=== PATIENT | female | born 1960 | race African-American/Black ===

== ENCOUNTER 2018-09-27 05:07 | Inpatient (IN) ==
[2018-09-27] MEDS ORDERED: MethylPREDNISolone Sod Succinate Inj 125 MG/2 ML Vial IV.PUSH ONE (05:16)
--- NOTE | 2018-09-27 05:21 | ED ---
HPI General Chief Complaint: Asthma Stated Complaint: resp Time Seen by Provider: 09/27/18 05:12 Source: patient Mode of arrival: ambulatory Limitations: other (poor historian) History of Present Illness HPI Narrative: 57 y/o female presents with awaking this morning with cough and congestion and shortness of breath. She states she does not have her inhalers with her asthma with her as she is visiting someone she states. She elected to come straight here. She states she felt fine yesterday. She denies other concurrent complaints. Quality is wheezing. Severity is progressive. She denies specific modifying factors. Related Data Home Medications Medication Instructions Recorded Confirmed Unable to Obtain Home Meds 09/27/18 09/27/18 Allergies Allergy/AdvReac Type Severity Reaction Status Date / Time acetaminophen Allergy Severe SWELLING/IT Unverified 05/28/17 19:54 SOLA codeine Allergy Severe SWELLING/IT Unverified 05/28/17 19:54 SOLA oxycodone Allergy Severe SWELLING/IT Unverified 05/28/17 19:54 SOLA propoxyphene Allergy Severe SWELLING Unverified 05/28/17 19:54 tramadol Allergy Mild Swelling Unverified 05/28/17 19:54 aspirin Allergy Unknown Unverified 05/28/17 19:54 Review of Systems ROS: all other systems reviewed are negative [facility] Medical History Medical History Asthma (Acute) HTN (hypertension) (Acute) Hypothyroid (Acute) H/O: hysterectomy (Acute) Social History Social History Substance History: No History of Abuse Second Hand Smoke Exposure: Yes Smoking Status: Former smoker Tobacco Type: Cigarettes How Often Do You Have a Drink Containing Alcohol: Never Recent Travel in [facility] within the Last 8 Weeks: No Recent Out of Country Travel within the Last 8 Weeks: No Exam Narrative Exam Narrative: GENERAL: 57 y/o female in no apparent distress SKIN: Focused skin assessment warm/dry. HEAD: Atraumatic. Normocephalic. EYES: Pupils equal and round. No scleral icterus. No injection or drainage. ENT: No nasal bleeding or discharge. Mucous membranes pink and moist. NECK: Trachea midline. No JVD. CARDIOVASCULAR: Regular rate and rhythm. RESPIRATORY: No accessory muscle use. inspiratory and expiratory wheezing bilaterally. GASTROINTESTINAL: Abdomen soft, non-tender, nondistended. MUSCULOSKELETAL: No obvious deformities. No clubbing. No cyanosis. No edema. NEUROLOGICAL: Awake and alert. No Motor grossly within normal limits. Normal speech. PSYCHIATRIC: Appropriate mood and affect; insight and judgment normal. Course Reevaluation(s) Reevaluation #1: On recheck after 2 breathing treatments patient's oxygen saturation is 89% and she is still wheezing. Will repeat third neb and place in observation. Patient agrees to plan of care Consultations Consultation #1: dr larson agrees to admit Initial Documented Vital Signs Temperature 98.6 F 09/27/18 05:08 Pulse Rate 99 H 09/27/18 05:08 Respiratory Rate 35 H 09/27/18 05:08 Blood Pressure 167/94 H 09/27/18 05:08 Pulse Oximetry 95 09/27/18 05:08 Last Documented Vital Signs Temperature 98.6 F 09/27/18 05:08 Pulse Rate 84 09/27/18 06:10 Respiratory Rate 18 09/27/18 06:10 Blood Pressure 167/94 H 09/27/18 05:08 Pulse Oximetry 92 L 09/27/18 05:59 Medical Decision Making MDM Narrative Medical decision making narrative: will check labs, cxr and dose with solumedrol and duonebs and reeval Medical Screen Exam Complete: Yes Emergency Medical Condition: Yes Differential Diagnosis Differential Diagnosis: asthma, pneumothorax, pneumonia, uri... Lab Data Result diagrams: 09/27/18 05:30 09/27/18 05:30 Lab Results 09/27/18 09/27/18 Range/Units 05:30 05:30 WBC 9.4 (4.0-11.0) th/mm3 RBC 3.80 L (4.00-5.30) mil/mm3 Hgb 12.4 (11.6-15.3) gm/dL Hct 37.0 (35.0-46.0) % MCV 97.4 (80.0-100.0) fL MCH 32.7 (27.0-34.0) pg MCHC 33.6 (32.0-36.0) % RDW 14.7 (11.6-17.2) % Plt Count 268 (150-450) th/mm3 MPV 9.3 (7.0-11.0) fL Neut % (Auto) 55.1 (16.0-70.0) % Lymph % (Auto) 35.9 (9.0-44.0) % Bremer % (Auto) 6.6 (0.0-8.0) % Eos % (Auto) 1.8 (0.0-4.0) % Baso % (Auto) 0.6 (0.0-2.0) % Neut # (Auto) 5.2 (1.8-7.7) th/mm3 Lymph # (Auto) 3.4 (1.0-4.8) th/mm3 Bremer # (Auto) 0.6 (0.0-0.9) th/mm3 Eos # (Auto) 0.2 (0.0-0.4) th/mm3 Baso # (Auto) 0.1 (0.0-0.2) th/mm3 WBC Differential . Differential Comment Auto diff final Sodium 139 (136-145) meq/L Potassium 3.9 (3.5-5.1) meq/L Chloride 107 (98-107) meq/L Carbon Dioxide 25.9 (21.0-32.0) meq/L Anion Gap 6 (5-15) meq/L BUN 19 H (7-18) mg/dL Creatinine 0.83 (0.50-1.00) mg/dL Estimated GFR 86 L (>89) mL/min Random Glucose 115 H (74-106) mg/dL Calcium 7.9 L (8.5-10.1) mg/dL Imaging Data Radiologist's impression: Chest X-Ray 09/27/18 05:16 CONCLUSION: No acute cardiopulmonary process. Discharge Plan Discharge Disposition Patient Disposition: ED Admit(ED Internal Use Only) Discharge Order Discharge Orders: ED Use Only Admit Order (Routine); Ordered 09/27/18 Ordered By: Michelle Neville Discharge Details Diagnosis: Asthma exacerbation Physicians Team ED Provider: Michelle Neville Primary Care Provider: Primary Care Rosy,Michelle Attending Provider: Noam Larson Status ED Status: Admitted Observation Patient
[2018-09-27 05:45] LABS: Baso # (Auto) 0.1 th/mm3 (0.0-0.2); Baso % (Auto) 0.6 % (0.0-2.0); Eos # (Auto) 0.2 th/mm3 (0.0-0.4); Eos % (Auto) 1.8 % (0.0-4.0); Hemoglobin 12.4 gm/dL (11.6-15.3); Lymph # (Auto) 3.4 th/mm3 (1.0-4.8); Lymph % (Auto) 35.9 % (9.0-44.0); Mean Corpuscular HGB Conc 33.6 % (32.0-36.0); Mean Corpuscular Hemoglobin 32.7 pg (27.0-34.0); Mean Corpuscular Volume 97.4 fL (80.0-100.0); Mean Platelet Volume 9.3 fL (7.0-11.0); Mono # (Auto) 0.6 th/mm3 (0.0-0.9); Mono % (Auto) 6.6 % (0.0-8.0); Neut # (Auto) 5.2 th/mm3 (1.8-7.7); Neut % (Auto) 55.1 % (16.0-70.0); Platelet Count 268 th/mm3 (150-450); Red Cell Distribution Width 14.7 % (11.6-17.2); White Blood Count 9.4 th/mm3 (4.0-11.0)
--- NOTE | 2018-09-27 05:52 | XR ---
EXAM DATE: 09/27/2018 5:27 AM EST AGE/SEX: 57 years / Female INDICATIONS: Shortness of breath and cough. CLINICAL DATA: This is the patient's initial encounter. Patient reports that signs and symptoms have been present for 1 day and indicates a pain score of 0/10. MEDICAL/SURGICAL HISTORY: Hypertension. Hyperthyroidism. None. COMPARISON: No prior exams available for comparison. FINDINGS: A single AP view of the chest demonstrates the lungs to be symmetrically aerated without evidence of mass, infiltrate or effusion. The cardiomediastinal contours are unremarkable. Osseous structures a re intact. CONCLUSION: No acute cardiopulmonary process. Electronically signed by: Mir Edwards MD Board Certified Radiologist 09/27/2018 5:51 AM EST
[2018-09-27 06:18] LABS: Calcium 7.9 mg/dL (8.5-10.1); Carbon Dioxide 25.9 meq/L (21.0-32.0); Potassium 3.9 meq/L (3.5-5.1)
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
[2018-09-27] MEDS ORDERED: hydrALAZINE 25 MG Tablet PO PRN (17:32)
[2018-09-27] MEDS ORDERED: Senna/Docusate Sodium 8.6/50 MG Tablet PO PRN (17:35)
[2018-09-27] MEDS: guaiFENesin/Dextromethorphan 200 MG/20 MG 10 ML UDC PO PRN (18:24)
[2018-09-27] MEDS: Pantoprazole Sodium 20 MG DR Tablet PO SCH (18:24)
[2018-09-27 19:04] LABS: Amphetamine Screen,Urine Neg (Neg); Barbiturate Screen,Urine Neg (Neg); Cannabinoid Screen,Urine Neg (Neg); Cocaine Screen,Urine Neg (Neg)
[2018-09-27 19:16] LABS: Opiate Screen,Urine Neg (Neg)
[2018-09-27] MEDS: Heparin - SQ 10,000 UNITS/ML Vial SQ SCH (21:13)
[2018-09-28] MEDS: Pantoprazole Sodium 20 MG DR Tablet PO SCH (08:25)
[2018-09-28] MEDS: Heparin - SQ 10,000 UNITS/ML Vial SQ SCH ×2 (08:25→21:21)
[2018-09-28] MEDS: predniSONE 20 MG Tablet PO SCH ×2 (10:16→21:18)
--- NOTE | 2018-09-28 15:02 | P.PNIM ---
Subjective Interval history: Follow up asthma/COPD exacerbation, tobacco use, hypoxia Patient reports mild shortness of breath while at rest, wheezing and moderate to severe dyspnea with mild exertion. She states "maybe one more day will help me." Patient with nonproductive cough but states things are starting to break up with her breathing treatments. Pleuritic type chest pain with coughing. Physical Exam Vital signs: Last Vital Signs Temp 98.2 F 09/28/18 11:32 Pulse 86 09/28/18 11:32 Resp 22 09/28/18 11:03 BP 166/93 H 09/28/18 12:51 Pulse Ox 95 09/28/18 11:32 Intake & Output 09/26/18 09/27/18 09/28/18 09/29/18 06:59 06:59 06:59 06:59 Weight 116.12 kg 116.12 kg Narrative: GENERAL: no acute distress, well developed, well nourished SKIN: warm and dry HEAD: normocephalic, atraumatic EYES: no scleral icterus. No injection or drainage. NECK: Supple, trachea midline. No JVD or lymphadenopathy. CARDIOVASCULAR: Regular rate and rhythm without murmurs, gallops, or rubs. RESPIRATORY: Breath sounds equal bilaterally. Diffuse expiratory wheezing throughout bilateral lung mack. GASTROINTESTINAL: Abdomen soft, non-tender, nondistended. MUSCULOSKELETAL: No cyanosis, or edema. Results Labs CBC & Chem 7: 09/27/18 05:30 09/27/18 05:30 Assessment and Plan Plan Patient is a 57 year old female with a past medical history significant for asthma, tobacco use and schizophrenia. She presents complaining of wheezing and worsening shortness of breath over the past couple of days. Acute asthma/COPD exacerbation - slowly improving -duonebs every 4 hrs scheduled -Prednisone PO -supplemental O2 PRN to maintain sats > 90% -IS at bedside Tobacco use -Nicotine patch while inpatient -encouraged cessation Hx of schizophrenia -patient follows up at [facility] -continue outpatient follow up Constipation -scheduled Sennakot -Miralax PRN BMI 46.8. -Encourage lifestyle and dietary modification. MDM: self Code: Full GI ppx: PO intake DVT ppx: Heparin Subcu Code Status: Full Discussed Condition With: RN, patient Discharge Planning: Home once medically optimized Progress Note: Quality VTE Deep Vein Thrombosis/Pulmonary Embolism Present on Admission: No
[2018-09-28] MEDS ORDERED: Senna/Docusate Sodium 8.6/50 MG Tablet PO SCH (21:00)
[2018-09-28] MEDS: Melatonin 5 MG Tablet PO PRN (21:17)
[2018-09-28] MEDS: guaiFENesin/Dextromethorphan 200 MG/20 MG 10 ML UDC PO PRN (21:27)
[2018-09-29] MEDS ORDERED: Acetaminophen 325 MG Tablet PO PRN (08:36)
[2018-09-29] MEDS ORDERED: Ketorolac Inj 30 MG/ML (IVP) Vial IV.PUSH ONE (08:39)
--- NOTE | 2018-09-29 08:48 | P.PNIM ---
Subjective Interval history: Follow up acute asthma/COPD exacerbation, SOB, RUSHING, low back pain, constipation Patient is resting in bed. She reports having had a soft bowel movement earlier this morning. She continues to experience shortness of breath at rest, moderate to severe dyspnea with mild exertion and wheezing. Patient endorses productive cough with yellow phlegm. Uses IS at bedside. No fevers or chills. No abdominal pain, distention, nausea or vomiting. Tolerating diet. She reports lower back aching, sharp pain with radiation down her bilateral legs and is requesting pain medication. Physical Exam Vital signs: Last Vital Signs Temp 98.0 F 09/29/18 08:29 Pulse 94 H 09/29/18 08:29 Resp 18 09/29/18 08:29 BP 167/92 H 09/29/18 08:29 Pulse Ox 99 09/29/18 07:42 Intake & Output 09/27/18 09/28/18 09/29/18 09/30/18 06:59 06:59 06:59 06:59 Intake Total 360 / 360 Balance 360 / 360 Weight 116.12 kg 116.12 kg Narrative: GENERAL: no acute distress, well developed, well nourished SKIN: warm and dry HEAD: normocephalic, atraumatic EYES: no scleral icterus. No injection or drainage. NECK: Supple, trachea midline. No JVD or lymphadenopathy. CARDIOVASCULAR: Regular rate and rhythm without murmurs, gallops, or rubs. RESPIRATORY: Breath sounds equal bilaterally. Diffuse expiratory wheezing throughout bilateral lung mack. GASTROINTESTINAL: Abdomen soft, non-tender, nondistended. MUSCULOSKELETAL: No cyanosis, or edema. Results Labs CBC & Chem 7: 09/27/18 05:30 09/27/18 05:30 Assessment and Plan Plan Patient is a 57 year old female with a past medical history significant for asthma, tobacco use and schizophrenia. She presents complaining of wheezing and worsening shortness of breath over the past couple of days. Acute asthma/COPD exacerbation - slowly improving -persistent wheezing -discussed outpatient pulmonary follow up with patient for evaluation of probable underlying COPD w/ her current hx of tobacco use. Patient states she plans on following up with energy specialist Dr Fox. -cam leslie every 4 hrs scheduled, Prednisone PO, added Symbicort BID -supplemental O2 PRN to maintain sats > 90% -IS at bedside Hypertension, uncontrolled -SBP 160's -pt unable to provide complete list of home meds -has pill bottle of Lisinopril 20 mg PO daily, this was resumed today -monitor vital signs per unit protocol Hypothyroidism, chronic -resume Synthroid 137 mcg PO daily -check TSH Tobacco use -Nicotine patch while inpatient -encouraged cessation Hx of schizophrenia -patient follows up at [facility] -continue outpatient follow up Constipation - resolved -(+) BM today -scheduled Sennakot -Miralax PRN BMI 46.8. -Encourage lifestyle and dietary modification. MDM: self Code: Full GI ppx: PO intake DVT ppx: Heparin Subcu Discussed Condition With: RN, patient Discharge Planning: Home once medically optimized Progress Note: Quality VTE Deep Vein Thrombosis/Pulmonary Embolism Present on Admission: No
[2018-09-29] MEDS: Heparin - SQ 10,000 UNITS/ML Vial SQ SCH ×2 (09:39→22:48)
[2018-09-29] MEDS: predniSONE 20 MG Tablet PO SCH ×2 (09:39→22:49)
[2018-09-29] MEDS: Pantoprazole Sodium 20 MG DR Tablet PO SCH (09:40)
[2018-09-29] MEDS: Lisinopril 20 MG Tablet PO SCH (09:40)
[2018-09-29] MEDS: Senna/Docusate Sodium 8.6/50 MG Tablet PO SCH ×2 (09:40→22:49)
[2018-09-29] MEDS: Budesonide-Formoterol 80/4.5 MCG 6.9 GM Inhaler INH SCH ×2 (10:26→22:50)
[2018-09-29] MEDS: guaiFENesin/Dextromethorphan 200 MG/20 MG 10 ML UDC PO PRN ×2 (17:10→22:59)
[2018-09-29] MEDS ORDERED: Bisacodyl 10 MG Supp RECTAL ONE (22:12)
[2018-09-29] MEDS: Melatonin 5 MG Tablet PO PRN (22:48)
[2018-09-29] MEDS: Polyethylene Glycol 3350 17 GM Packet PO PRN (23:00)
[2018-09-30 04:47] LABS: Baso # (Auto) 0.1 th/mm3 (0.0-0.2); Baso % (Auto) 0.7 % (0.0-2.0); Eos % (Auto) 0.1 % (0.0-4.0); Hematocrit 37.3 % (35.0-46.0); Hemoglobin 12.2 gm/dL (11.6-15.3); Lymph # (Auto) 3.1 th/mm3 (1.0-4.8); Lymph % (Auto) 27.8 % (9.0-44.0); Mean Corpuscular HGB Conc 32.8 % (32.0-36.0); Mean Corpuscular Hemoglobin 32.4 pg (27.0-34.0); Mean Corpuscular Volume 98.6 fL (80.0-100.0); Mean Platelet Volume 9.6 fL (7.0-11.0); Mono % (Auto) 8.9 % (0.0-8.0); Neut % (Auto) 62.5 % (16.0-70.0); Platelet Count 236 th/mm3 (150-450); Red Blood Count 3.78 mil/mm3 (4.00-5.30); Red Cell Distribution Width 15.1 % (11.6-17.2); White Blood Count 11.2 th/mm3 (4.0-11.0)
[2018-09-30 04:59] LABS: Anion Gap 8 meq/L (5-15); Blood Urea Nitrogen 17 mg/dL (7-18); Calcium 8.2 mg/dL (8.5-10.1); Carbon Dioxide 27.3 meq/L (21.0-32.0); Chloride 102 meq/L (98-107); Glomerular Filtration Rate Greater Than 89 mL/min (>89); Glucose,Random 135 mg/dL (74-106); Potassium 4.3 meq/L (3.5-5.1); Sodium 137 meq/L (136-145)
[2018-09-30] MEDS: Levothyroxine 112 MCG Tablet PO SCH (05:49)
[2018-09-30] MEDS: Lisinopril 20 MG Tablet PO SCH (09:10)
[2018-09-30] MEDS: predniSONE 20 MG Tablet PO SCH ×2 (09:10→20:17)
[2018-09-30] MEDS: Polyethylene Glycol 3350 17 GM Packet PO PRN ×2 (09:10→20:14)
[2018-09-30] MEDS: Senna/Docusate Sodium 8.6/50 MG Tablet PO SCH (09:10)
[2018-09-30] MEDS: Pantoprazole Sodium 20 MG DR Tablet PO SCH (09:10)
[2018-09-30] MEDS: Heparin - SQ 10,000 UNITS/ML Vial SQ SCH ×2 (09:11→20:11)
[2018-09-30] MEDS: Budesonide-Formoterol 80/4.5 MCG 6.9 GM Inhaler INH SCH ×2 (09:11→20:16)
[2018-09-30] MEDS: guaiFENesin/Dextromethorphan 200 MG/20 MG 10 ML UDC PO PRN ×2 (11:55→20:13)
--- NOTE | 2018-09-30 15:13 | P.PNIM ---
Subjective Interval history: Follow up asthma/COPD exacerbation Patient states she attempted to get out of bed and felt dizzy, lightheaded and short of breath. Patient continues to report moderate to severe dyspnea with mild exertion. She states she is most likely going to needs home oxygen if she feels severely short of breath with any sort of activity. She does have a productive cough with yellow phlegm production. Pleuritic type chest pain improved. Negative for calf pain or lower extremity edema. No fevers or chills. Physical Exam Vital signs: Last Vital Signs Temp 97.5 F L 09/30/18 11:56 Pulse 84 09/30/18 12:55 Resp 20 09/30/18 12:55 BP 166/93 H 09/30/18 11:56 Pulse Ox 99 09/30/18 11:56 Intake & Output 09/28/18 09/29/18 09/30/18 10/01/18 06:59 06:59 06:59 06:59 Intake Total 360 / 360 1200 / 1200 Output Total 1150 / 1150 Balance 360 / 360 50 / 50 Weight 116.12 kg 116.12 kg Narrative: GENERAL: no acute distress, well developed, well nourished SKIN: warm and dry HEAD: normocephalic, atraumatic EYES: no scleral icterus. No injection or drainage. NECK: Supple, trachea midline. No JVD or lymphadenopathy. CARDIOVASCULAR: Regular rate and rhythm without murmurs, gallops, or rubs. RESPIRATORY: Breath sounds equal bilaterally. Minimal wheezing throughout all lung mack. GASTROINTESTINAL: Abdomen soft, non-tender, nondistended. MUSCULOSKELETAL: No cyanosis, or edema. Results Labs CBC & Chem 7: 09/30/18 03:52 09/30/18 03:52 Assessment and Plan Plan Patient is a 57 year old female with a past medical history significant for asthma, tobacco use and schizophrenia. She presents complaining of wheezing and worsening shortness of breath over the past couple of days. Acute asthma/COPD exacerbation - slowly improving -wheezing improved -discussed outpatient pulmonary follow up with patient for evaluation of probable underlying COPD w/ her current hx of tobacco use. Patient states she plans on following up with managed care specialist Dr Fox. -continue duonebs every 4 hrs scheduled, Prednisone PO, Symbicort BID -supplemental O2 PRN to maintain sats > 90% -IS at bedside -CM consulted for assistance with nebulizer machine Hypertension, chronic and stable -continue Lisinopril 20 mg PO daily -monitor vital signs per unit protocol Hypothyroidism, chronic -resume Synthroid 137 mcg PO daily -TSH 6.160, check free T3,T4 Tobacco use -Nicotine patch while inpatient -encouraged cessation Hx of schizophrenia -patient follows up at [facility] -continue outpatient follow up Constipation - resolved -(+) BM today -scheduled Sennakot -Miralax PRN BMI 46.8. -Encourage lifestyle and dietary modification. MDM: self Code: Full GI ppx: PO intake DVT ppx: Heparin Subcu Discussed Condition With: RN, patient, CM Discharge Planning: Home once medically optimized Progress Note: Quality VTE Deep Vein Thrombosis/Pulmonary Embolism Present on Admission: No
[2018-09-30 16:28] LABS: Free T4 (Free Thyroxine) 0.69 ng/dL (0.76-1.46); Triiodothyronine (T3) Free 1.07 pg/mL (2.18-3.98)
[2018-09-30] MEDS: Melatonin 5 MG Tablet PO PRN (20:13)
[2018-10-01] MEDS: Levothyroxine 112 MCG Tablet PO SCH (06:24)
[2018-10-01] MEDS: Senna/Docusate Sodium 8.6/50 MG Tablet PO SCH ×3 (08:08→21:18)
[2018-10-01] MEDS: Lisinopril 20 MG Tablet PO SCH (09:53)
[2018-10-01] MEDS: Budesonide-Formoterol 80/4.5 MCG 6.9 GM Inhaler INH SCH ×2 (09:53→21:19)
[2018-10-01] MEDS: Pantoprazole Sodium 20 MG DR Tablet PO SCH (09:53)
[2018-10-01] MEDS: predniSONE 20 MG Tablet PO SCH ×2 (09:54→21:18)
[2018-10-01] MEDS: Heparin - SQ 10,000 UNITS/ML Vial SQ SCH ×2 (09:54→21:23)
--- NOTE | 2018-10-01 12:14 | P.PNIM ---
Subjective Interval history: Follow up COPD/asthma exacerbation, SOB, dizzy, lightheaded Patient seen and examined while resting in bed. She states she almost fell last night due to feeling dizzy. Orthostatic vital signs completed yesterday and (-) . Discussed discharge planning with patient. She states she is not ready as she feels short of breath whenever the oxygen is being taken off of her. She also complains of feeling dizzy and lightheaded when standing up. RT attempted walk test. Patients oxygenation remained > 90% on room air, however, she states she feels dizzy and is going to fall if she does not stop. Walk test not completed. Patient denies chest pain, abdominal pain, nausea or vomiting. Patient was constipated but states she has had a bowel movement yesterday. Physical Exam Vital signs: Last Vital Signs Temp 98.0 F 10/01/18 08:00 Pulse 77 10/01/18 11:39 Resp 18 10/01/18 11:39 BP 127/79 10/01/18 08:00 Pulse Ox 97 10/01/18 10:58 Intake & Output 09/29/18 09/30/18 10/01/18 10/02/18 06:59 06:59 06:59 06:59 Intake Total 360 / 360 1200 / 1200 480 / 480 Output Total 1150 / 1150 Balance 360 / 360 50 / 50 480 / 480 Weight 116.12 kg 116.12 kg Narrative: GENERAL: no acute distress, well developed, well nourished SKIN: warm and dry HEAD: normocephalic, atraumatic EYES: no scleral icterus. No injection or drainage. NECK: Supple, trachea midline. No JVD or lymphadenopathy. CARDIOVASCULAR: Regular rate and rhythm without murmurs, gallops, or rubs. RESPIRATORY: Breath sounds equal bilaterally. Minimal wheezing throughout all lung mack. GASTROINTESTINAL: Abdomen soft, non-tender, nondistended. MUSCULOSKELETAL: No cyanosis, or edema. Results Labs CBC & Chem 7: 09/30/18 03:52 09/30/18 03:52 Assessment and Plan Plan Patient is a 57 year old female with a past medical history significant for asthma, tobacco use and schizophrenia. She presents complaining of wheezing and worsening shortness of breath over the past couple of days. Acute asthma/COPD exacerbation - slowly improving -wheezing improved -discussed outpatient pulmonary follow up with patient for evaluation of probable underlying COPD w/ her current hx of tobacco use. Patient states she plans on following up with eviction specialist Dr Fox. -continue duonebs every 4 hrs scheduled, Prednisone PO, Symbicort BID -supplemental O2 PRN to maintain sats > 90% -IS at bedside -CM consulted for assistance with nebulizer machine. This will be delivered to patients Grandmother's home 10/01/18. 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 -Encourage lifestyle and dietary modification. MDM: self Code: Full GI ppx: PO intake DVT ppx: Heparin Subcu Discussed Condition With: RN, patient, RT Discharge Planning: Home once medically optimized Progress Note: Quality VTE Deep Vein Thrombosis/Pulmonary Embolism Present on Admission: No
[2018-10-01] MEDS: guaiFENesin/Dextromethorphan 200 MG/20 MG 10 ML UDC PO PRN (21:30)
[2018-10-01] MEDS: Melatonin 5 MG Tablet PO PRN (21:31)
[2018-10-02] MEDS: Levothyroxine 112 MCG Tablet PO SCH (06:14)
[2018-10-02 07:37] VITALS: BP 140/87; TEMP 98.6; O2SAT 95
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
[2018-10-02] MEDS: predniSONE 20 MG Tablet PO SCH (08:14)
[2018-10-02] MEDS: Heparin - SQ 10,000 UNITS/ML Vial SQ SCH (08:15)
[2018-10-02] MEDS: Senna/Docusate Sodium 8.6/50 MG Tablet PO SCH (08:15)
[2018-10-02] MEDS: Pantoprazole Sodium 20 MG DR Tablet PO SCH (08:15)
[2018-10-02] MEDS: Lisinopril 20 MG Tablet PO SCH (08:15)
[2018-10-02 08:18] VITALS: PULSE 91; RESP 20
[2018-10-02] MEDS: Budesonide-Formoterol 80/4.5 MCG 6.9 GM Inhaler INH SCH (08:20)
== END 2018-10-02 11:35 | disposition home or self-care (01) ==
LOC: NEDA 05:07 → NEPC 05:07 → NEPFCDU 09:15
PROVIDERS: ADMIT Internal Medicine; ATTEND Internal Medicine
DX: E03.9 Hypothyroidism, unspecified; Z90.49 Acquired absence of other specified parts of digestive tract; Z90.710 Acquired absence of both cervix and uterus; Z88.6 Allergy status to analgesic agent; Z79.890 Hormone replacement therapy; J44.1 Chronic obstructive pulmonary disease with (acute) exacerbation; F20.9 Schizophrenia, unspecified; E66.01 Morbid (severe) obesity due to excess calories; Z79.899 Other long term (current) drug therapy; J45.901 Unspecified asthma with (acute) exacerbation; Z88.5 Allergy status to narcotic agent; K59.00 Constipation, unspecified; Z68.42 Body mass index [BMI] 45.0-49.9, adult; F17.210 Nicotine dependence, cigarettes, uncomplicated; I10 Essential (primary) hypertension